=== PATIENT | male | born 1965 | race Caucasian/White ===

== ENCOUNTER 2019-11-26 06:13 | Emergency (ER) | payer OTHER ==
[2019-11-26] MEDS ORDERED: cefTRIAXone 1 GM VIAL IM STA (07:43)
[2019-11-26] MEDS ORDERED: LIDOCAINE 1% 2 ML VIAL MC ONE (07:43)
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
[2019-11-26 08:58] VITALS: BP 138/84
== END 2019-11-26 08:27 | disposition home or self-care (01) ==
LOC: ED 06:13
DX: L03.115 Cellulitis of right lower limb (principal)
CPT/HCPCS: 99283; 99284

== ENCOUNTER 2023-12-02 08:00 | Outpatient (CLI) | payer OTHER ==
[2023-12-02 18:34] LABS: HCT - HEMATOCRIT 42.8 % (42.0-52.0); HGB - HEMOGLOBIN 13.9 g/dL (14.0-18.0); MEAN CORPUSCULAR HEMOGLOBIN 31.2 pg (27.0-31.0); MEAN CORPUSCULAR HGB CONC 32.5 g/dL (32.0-36.0); MEAN PLATELET VOLUME 10.9 fL (7.4-11.4); RED BLOOD COUNT 4.46 10^6/uL (4.70-6.10); WHITE BLOOD COUNT 10.5 x10^3/uL (4.8-10.8)
[2023-12-02 18:46] LABS: CALCIUM 9.4 mg/dL (8.5-10.3); CREATININE 0.8 mg/dL (0.6-1.3); POTASSIUM 4.2 mmol/L (3.5-4.5)
== END 2023-12-02 23:59 | disposition home or self-care (01) ==
LOC: LAB.N 08:00
PROVIDERS: ATTEND Nurse Practitioner
DX: L03.116 Cellulitis of left lower limb (principal)
CPT/HCPCS: 36415; 80048; 85027; 85379